=== PATIENT | female | born 1960 | race Caucasian/White ===

== ENCOUNTER 2020-02-04 12:46 | Outpatient (CLI) | payer BC, OTHER, SELFPAY ==
--- NOTE | ~2020-02-04 | DEXA_ITS ---
Bone Density Report Name: Marian Jamil Age: 59 Sex: Female Ethnicity: White Date of : 1960 Indication: osteopenia;postmenopausal Referring Provider: ESTEFANÍA WINTERS Study: Bone densitometry was performed. Exam Date: February 04, 2020 Accession number: [id number] Bone Density: Region BMD T-score Z-score Classification AP Spine (L1-L4) 0.911 -1.2 0.2 Osteopenia Femoral Neck (Left) 0.600 -2.2 -1.0 Osteopenia Total Hip (Left) 0.824 -1.0 0.0 Normal Total Hip Bilateral Avg 0.822 -1.0 -0.1 Osteopenia Femoral Neck (Right) 0.630 -2.0 -0.7 Osteopenia Total Hip (Right) 0.820 -1.0 -0.1 Normal World Health Organization criteria for BMD impression classify patients as: Normal (T-score at or above -1.0), Osteopenia (T-score between -1.0 and -2.5), or Osteoporosis (T-score at or below -2.5). 10-year Fracture Risk(1): Major Osteoporotic Fracture 9.8% Hip Fracture 1.5% Reported Risk Factors: [place] (), Neck BMD=0.600, BMI=22.7 (1) FRAX(R) Version 3.08. Fracture probability calculated for an untreated patient. Fracture probability may be lower if the patient has received treatment. Previous Exams: Region Exam Age BMD T-score BMD Change BMD Change Date g/cm2 vs Baseline vs Previous AP Spine(L1-L4) 02/04/2020 59 0.911 -1.2 -0.024(-2.6%)# 0.023(2.6%)* 09/18/2017 57 0.888 -1.4 -0.047(-5.1%)# 0.021(2.5%) 09/03/2014 54 0.867 -1.6 -0.069(-7.4%)# 0.018(2.1%)# 06/22/2012 52 0.849 -1.8 -0.087(-9.3%)# -0.087(-9.3%)# 03/25/2010 49 0.936 -1.0 Total Hip(Left) 02/04/2020 59 0.824 -1.0 0.007(0.9%)# -0.003(-0.3%) 09/18/2017 57 0.826 -0.9 0.010(1.2%)# -0.046(-5.2%)* 09/03/2014 54 0.872 -0.6 0.055(6.8%)# -0.016(-1.8%)# 06/22/2012 52 0.888 -0.4 0.071(8.7%)# 0.071(8.7%)# 03/25/2010 49 0.817 -1.0 Total Hip(Right) 02/04/2020 59 0.820 -1.0 -0.009(-1.1%)# -0.013(-1.6%) 09/18/2017 57 0.834 -0.9 0.004(0.5%)# 0.033(4.1%)* 09/03/2014 54 0.801 -1.2 -0.029(-3.5%)# -0.024(-2.9%)# 06/22/2012 52 0.824 -1.0 -0.005(-0.7%)# -0.005(-0.7%)# 03/25/2010 49 0.830 -0.9 *Denotes significance at 95% confidence level, LSC for AP Spine = 0.022 g/cm2, LSC for Total Hip = 0.027 g/cm2 Clinical Information Provided by Patient: Has used the following medications: Vitamin D, Calcium Patient maximum height was 62 Menopause Age: 48 No regular weight bearing exercise Drinks caffeinated beverages Onset of menses at age 13 Number of
== END 2020-02-04 12:47 | disposition home or self-care (01) ==
LOC: ANHIMG 12:48
PROVIDERS: PCP Family Medicine; Visit Provider Obstetrics & Gynecology
DX: Z78.0 Asymptomatic menopausal state (principal); M85.88 Other specified disorders of bone density and structure, other site; M85.852 Other specified disorders of bone density and structure, left thigh; M85.851 Other specified disorders of bone density and structure, right thigh
CPT/HCPCS: 77080

== ENCOUNTER 2020-11-06 02:32 | Day surgery (SDC) | payer BC, SELFPAY ==
[2020-10-26 13:57] VITALS: BMI 21.8
[2020-11-06 08:44] VITALS: BP 126/77; PULSE 76; RESP 16; TEMP 36.2; O2SAT 99; BMI 20.8
--- NOTE | 2020-11-06 08:59 | WPDANESEPPF ---
Anes - Initial Pre Proc Eval Procedure: Operation Date: 11/06/20 09:30 Proposed Procedures p Screening Colonoscopy - Keshav Cox MD Date/Time: 11/06/20 08:59 Surgeon: Keshav Cox MD Pre Op Diagnosis: Neoplasm Screening, Hx of Colon Polps Patient Data Age: 60 Gender: F Height: 1.6 m Weight: 53.3 kg Last Vital Signs Temp 97.1 F L 11/06/20 08:44 Pulse 76 11/06/20 08:44 Resp 16 11/06/20 08:44 BP 126/77 11/06/20 08:44 Pulse Ox 99 11/06/20 08:44 Allergies Allergy/AdvReac Type Severity Reaction Status Date / Time oxycodone [From Percocet] Allergy Mild Nausea Verified 11/06/20 08:50 Home Medications Medication Instructions Recorded Confirmed Type calcium citrate 315 mg 2 tablet PO DAILY tablet 12/18/18 11/02/20 History calcium-vitamin D3 6.25 mcg (250 unit) tablet cholecalciferol (vitamin D3) 25 1,000 unit PO DAILY #90 cap 08/26/19 11/02/20 Rx mcg (1,000 unit) capsule melatonin 3 mg tablet See Rx Instructions .ROUTE 07/21/20 11/02/20 Rx .COMPLEX #30 tablet thyroid (pork) 120 mg tablet See Rx Instructions .ROUTE 09/22/20 11/02/20 Rx .COMPLEX #30 tablet estradiol 10/26/20 11/02/20 History testosterone 10/26/20 11/02/20 History biotin 5 mg capsule 5 mg PO DAILY 11/02/20 11/06/20 History progesterone micronized 100 mg 150 mg PO QAM cap 11/02/20 11/06/20 History capsule Patient hx anesthesia problems: none Family hx anesthesia problems: none Results Review: All pre-operative results and documents have been reviewed as part of the pre-operative evaluation. [facility] Past Medical History Medical History Bilateral bunions Hepatitis C antibody test negative (10/27/16) Hypothyroidism, unspecified Mixed hyperlipidemia Surgical History Surgical History History of bladder surgery bladder sling S/P foot surgery, left S/P foot surgery, right Family History Family History Father Hypertension Family history of elevated blood lipids Acute myocardial infarction Malignant neoplasm of prostate Family history of coronary artery disease Patient's father is , Onset Age: 80 Mother Hypertension Family history of malignant neoplasm of breast in first degree relative Family history of coronary artery disease Grandparent Carcinoma of colon Social History Social History Smoking status: Never smoker Alcohol intake: current Substance use: never Living arrangements: alone Anes - Eval Final PreProcedure Day of Procedure 11/06/20 08:59 Patient weight: normal Heart: regular rate and rhythm Lungs: clear to auscultation Airway: Mallampati scale class II Neurological: alert and oriented Last oral intake: >/= 8 hours ASA classification: II Emergent: no Anesthetic plan: proceed Anesthesia type and monitoring: general GIVS and standard monitoring Results Review: All pre-operative results and documents have been reviewed as part of the pre-operative evaluation. Informed Consent: The patient's anesthetic plan and its attendant risks and benefits were discussed with the patient/family/POA. Questions were solicited and answers provided to the satisfaction of the patient/family/POA.
[2020-11-06] MEDS: LACTATED RINGERS 1,000 ML 150 ML IV CONT (09:00)
--- NOTE | 2020-11-06 09:07 | WPDGICN ---
Assessment and Plan Assessment and plan (1) History of colon polyps: Code(s): Z86.010 - Personal history of colonic polyps Status: Acute Assessment and Plan: Patient has a prior history of colon polyps for this reason surveillance colonoscopy is a been advised . this report follows separately. further recommendations will be given after endoscopy. GI Consult Note Consult date/time: 11/06/20 09:07 HPI: Marian Jamil is a 60 year old female Presents for screening colonoscopy. Patient's current weight appetite bowel movements are normal. She denies abdominal pain. She has had no bleeding. Patient does have a prior history of colon polyps 2010. She had a previous colonoscopy 2015 that was unremarkable. She presents today for follow-up surveillance colonoscopy. Review of Systems Review of Systems: All systems reviewed & are unremarkable except as noted in HPI and below PMFSH Past Medical History Medical History Bilateral bunions Hepatitis C antibody test negative (10/27/16) Hypothyroidism, unspecified Mixed hyperlipidemia Surgical History Surgical History History of bladder surgery bladder sling S/P foot surgery, left S/P foot surgery, right Family History Family History Father Hypertension Family history of elevated blood lipids Acute myocardial infarction Malignant neoplasm of prostate Family history of coronary artery disease Patient's father is , Onset Age: 80 Mother Hypertension Family history of malignant neoplasm of breast in first degree relative Family history of coronary artery disease Grandparent Carcinoma of colon Social History Social History Smoking status: Never smoker Alcohol intake: current Substance use: never Living arrangements: alone Meds Home Medications and Allergies Home Medications Medication Instructions Recorded Confirmed Type calcium citrate 315 mg 2 tablet PO DAILY tablet 12/18/18 11/02/20 History calcium-vitamin D3 6.25 mcg (250 unit) tablet cholecalciferol (vitamin D3) 25 1,000 unit PO DAILY #90 cap 08/26/19 11/02/20 Rx mcg (1,000 unit) capsule melatonin 3 mg tablet See Rx Instructions .ROUTE 07/21/20 11/02/20 Rx .COMPLEX #30 tablet thyroid (pork) 120 mg tablet See Rx Instructions .ROUTE 09/22/20 11/02/20 Rx .COMPLEX #30 tablet estradiol 10/26/20 11/02/20 History testosterone 10/26/20 11/02/20 History biotin 5 mg capsule 5 mg PO DAILY 11/02/20 11/06/20 History progesterone micronized 100 mg 150 mg PO QAM cap 11/02/20 11/06/20 History capsule Allergies Allergy/AdvReac Type Severity Reaction Status Date / Time oxycodone [From Percocet] Allergy Mild Nausea Verified 11/06/20 08:50 Vital Signs Vital Signs - 24 hr 11/06/20 08:44 Temperature 97.1 F L Pulse Rate 76 Respiratory Rate 16 Blood Pressure 126/77 Pulse Oximetry 99 Exam Narrative: physical exam reveals patient to be alert. Vital signs stable. HEENT exam is unremarkable. Patient is anicteric. Lungs are clear to auscultation and percussion. Heart is without murmur or extra sounds. Abdominal exam bowel sounds are present soft nontender with no organomegaly. Digital external rectal exam is normal.
[2020-11-06 09:55] VITALS: BP 108/59; PULSE 75; RESP 20; O2SAT 100
[2020-11-06 10:05] VITALS: BP 144/74; PULSE 75; RESP 14; O2SAT 100
[2020-11-06 10:15] VITALS: BP 117/76; PULSE 73; RESP 14; O2SAT 100
== END 2020-11-06 10:23 | disposition home or self-care (01) ==
PROVIDERS: PCP Family Medicine; Visit Provider Internal Medicine Gastroenterology
PROC: 0DJD8ZZ Inspection of Lower Intestinal Tract, Via Natural or Artificial Opening Endoscopic (ICD-10-PCS; CPT 45378; principal; 2020-11-06 09:30)
DX: Z12.11 Encounter for screening for malignant neoplasm of colon (principal); K64.8 Other hemorrhoids; Z86.010 Personal history of colon polyps; E03.9 Hypothyroidism, unspecified; E78.2 Mixed hyperlipidemia
CPT/HCPCS: 45378; J2704; J7120

== ENCOUNTER → 2022-12-19 13:31 | Outpatient (CLI) | payer BC, SELFPAY ==
--- NOTE | ~2022-12-19 | DEXA_ITS ---
Bone Density Report Name: CRISTI SONG Age: 62 Sex: Female Ethnicity: White Date of : 1960 Indication: postmenopausal; screening for osteoporosis; Referring Provider: ESTEFANÍA WINTERS Study: Bone densitometry was performed. Exam Date: December 19, 2022 Accession number: [id number] Bone Density: Region BMD T-score Z-score Classification AP Spine (L1-L4) 0.931 -1.1 0.5 Osteopenia Femoral Neck (Left) 0.645 -1.8 -0.4 Osteopenia Total Hip (Left) 0.827 -0.9 0.1 Normal Femoral Neck (Right) 0.675 -1.6 -0.2 Osteopenia Total Hip (Right) 0.797 -1.2 -0.1 Osteopenia Total Hip Mean 0.812 -1.1 0.0 Osteopenia World Health Organization criteria for BMD impression classify patients as: Normal (T-score at or above -1.0), Osteopenia (T-score between -1.0 and -2.5), or Osteoporosis (T-score at or below -2.5). 10-year Fracture Risk(1): Major Osteoporotic Fracture 9.1% Hip Fracture 1.1% Reported Risk Factors: [place] (), Neck BMD=0.645, BMI=22.6 (1) FRAX(R) Version 3.08. Fracture probability calculated for an untreated patient. Fracture probability may be lower if the patient has received treatment. Clinical Information Provided by Patient: Has used the following medications: Vitamin D Patient maximum height was 62 Menopause Age: 42 Drinks caffeinated beverages Onset of menses at age 12 Number of children 1 Impression: The patient has low bone mass, based on the Left Femoral Neck T-score. The patient has an estimated ten-year risk of hip fracture of 1.1% and an estimated ten-year risk of major fracture of 9.1%, based on the WHO FRAX algorithm. Discussion: BONE DENSITY IS LOW AT ONE OR MORE SKELETAL SITES. This patient's lowest T-score is low at one or more skeletal sites. It meets the World Health Organization's (WHO) criteria for ?low bone mass? (T-score between -1.0 and -2.5). The patient's 10-year risk of fracture as calculated by FRAX is less than the threshold where pharmacological therapy is recommended by the National Osteoporosis Foundation (NOF). However, all treatment decisions require clinical judgment and consideration of individual patient factors, including patient preferences, comorbidities, previous drug use, risk factors not captured in the FRAX model (e.g., frailty, falls, vitamin D deficiency, increased bone turnover, interval significant decline in bone density) and possible under or overestimation of fracture risk by FRAX. The patient should follow a healthful lifestyle (good nutrition with adequate calcium and vitamin D, and appropriate weight-bearing exercise). Follow-Up: Consider repeating this study in 2 to 3 years to reassess this patient's status, or sooner if there is some new clinical indication. Reported by: [facility] on 12/19/2022 2:00:00 PM.
== END ==
PROVIDERS: PCP Obstetrics & Gynecology Gynecology; Visit Provider Obstetrics & Gynecology
DX: M85.88 Other specified disorders of bone density and structure, other site (principal); M85.852 Other specified disorders of bone density and structure, left thigh; M85.851 Other specified disorders of bone density and structure, right thigh
CPT/HCPCS: 77080

== ENCOUNTER 2024-04-11 11:33 | Outpatient (CLI) | payer OTHER, SELFPAY ==
[2024-04-11 12:58] LABS: Strep Group A RT-PCR NOT DETECTED (Negative)
[2024-04-11 13:10] LABS: Influenza A QL RT-PCR Positive (Negative); Influenza B QL RT-PCR Negative (Negative); RSV RNA, RT-PCR Negative (Negative); SARS-CoV-2 RNA PCR Negative (Negative)
--- OUTSIDE RECORDS SUMMARY | 2024-04-11 13:20 | XMS_ITS | Encounter Summary ---
Author Organization [facility] Address [address] [place] [address] Phone Care Team Providers Care Supervisor Riveting Name Role Phone Blane Izquierdo MD Unavailable [phone] Ciera Ayala DO Primary Care Provider [phone] Coretta Fisher MD Unavailable [phone] Tania Degroot MD Unavailable [phone] Kim Baumann NP Primary Care Provider [phone] Encounter Details Date Type Department Care Team (Latest Contact Info) Description 06/13/2022 Orders Only [facility] Scanning, Provider Social History Tobacco Use Types Packs/Day Years Used Date Smoking Tobacco: Never AUDIT-C Answer Date Recorded Q1: How often do you have a drink containing alc ohol? Monthly or less 11/03/2021 Q2: How many drinks containi ng alcohol do you have on a typical day when you are drinking? 1 or 2 11/03/2021 Q3: How often do you have si x or more drinks on one occasion? 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 Gender Identity Not on file Sexual Orientation Not on file documented as of this encounter Plan of Treatment Not on file documented as of this encounter Procedures Procedure Name Priority Date/Time Associated Diagnosis Comments SCAN - LABS 06/13/2022 documented in this encounter Results * SCAN - LABS (06/13/2022) us Provider Scanning Final Result documented in this encounter Visit Diagnoses Not on filedocumented in this encounter Care Teams Supervisor Riveting Relationship Specialty Start Date End Date Ciera Ayala DO [address] [place] [address] PCP - General Family Medicine 08/08/19 11/06/22 Kim Baumann, FRANKI [address] [facility] [address] [place] [address] PCP - General Internal Medicine 11/07/22 Blane Izquierdo MD [address] [facility] [address] [place] [address] Referring Physician Obstetrics and Gynecology 07/03/18 PhillipCoretta shannon MD [address] [place] [address] Surgeon Breast Surgery 11/03/21 Tania Degroot MD [address] [facility] [address] [place] [address] Referring Physician Obstetrics and Gynecology 11/03/21 documented as of this encounter
--- OUTSIDE RECORDS SUMMARY | 2024-04-11 13:20 | XMS_ITS | Continuity of Care Document ---
Author Organization [facility] Address [address] [place] [address] Phone Care Team Providers Care Fish Cleaner Name Role Phone Lang OD, Keshav Unavailable Unavailable Advance Directives Directive Yes / No Effective Date File Name No Information Encounters Encounter Description Practice Location Reason(s) For Visit Diagnoses Date Provider Providers Copied on Encounter [facility], [address], [place], [place], [id number], [place] tel:[phone] [facility] No Information [phone] Lang OD Keshav. [address], [place], [address], [place]. tel:[phone] Family History Family Member Type Diagnosis Age At Onset No Information Payers Payer name Insurance type Covered republican ID Authoriza tion(s) No Information Social History Type Description Quantity Date Captured Comments Sex Female Smoking Status No Information Chief Complaint And Reason For Visit No Information Reason For Referral Reason For Referral No Information History Of Present Illness Encounter Date Complaint History Of Prese nt Illness No Information Functional Status Date Functional Assessmen t No Information Instructions Date Instruction Additional Infor mation No Information Assessments Type Assessment Date No Information Patient Care Teams Name Effective Dates (start - stop) Status Members No Information
--- OUTSIDE RECORDS SUMMARY | 2024-04-11 13:20 | XMS_ITS | Clinical Summary ---
Author Organization [facility] Address [address] [place] [address] Care Team Providers Care Juice Scaleman Name Role Phone Blane Izquierdo MD Unavailable [phone] Coretta Fisher MD Unavailable Taina Degroot MD Unavailable [phone] Kim Baumann SIGN LANGUAGE TRANSLATOR Primary Care Provider [phone] Allergies Active Allergy Reactions Criticality Noted Date Comments Amoxicillin Hives High 01/26/2022 Medications SIGN LANGUAGE TRANSLATOR Thyroid 120 mg tablet Active cholecalciferol , vitamin D3, (VITAMIN D3 ORAL) Take 5,000 Units/day by mouth Active TESTOSTERONE, BULK, MISC 20 mg Testosterone 20mg cream Active ESTRADIOL-PROGE STERONE ORAL Take by mouth Estradiol 1.7mg and Progesterone 150mg Active vitamin D3-vitamin K2 25 mcg (1,000 unit)-90 mcg tablet,disinteg rating Take by mouth Active Active Problems Problem Noted Date Diagnosed Date Inconclusive mammogram due to dense breasts 03/2023 Family history of breast cancer 09/08/2021 Dense breast tissue on mammogram 09/08/2021 Encounter for screening mammogram for breast can cer 09/08/2021 Breast cancer screening, high risk patient 01/16 Resolved Problems Problem Noted Date Diagnosed Date Resolved Date Abnormal findings on diagnos tic imaging of breast 07/16/2018 08/12/2020 Immunizations Immunization Administration Dates Next Due Flucelvax Influenza Quad 11/22/2018 Influenza, Quadrivalent, Albertina l Culture-based MDCK, Preservative Free, Antibiotic Free, Intramuscular 11/20/2018 Influenza, Quadrivalent, Spl it, Preservative Free, Intramuscular 11/12/2019,10/31/2017 Surgical History Surgery Date Site/Laterality Comments BUNIONECTOMY 02/07/2008 - 02/05/2009 BLADDER SURGERY Medical History Medical History Date Comments Thyroid disease Family History Medical History Relation Name Comments Blood Clot Maternal Grandfather post-op blood clot Breast cancer Mother bilateral Relation Name Status Comments Father Maternal Grandfather Maternal Grandmother Mother Paternal Grandfather Paternal Grandmother Social History Tobacco Use Types Packs/Day Years Used Date Smoking Tobacco: Never Tobacco Cessation:Counseling Given: Not Answered AUDIT-C Answer Date Recorded Frequency of Alcohol Consumption Not on file 11/30/2022 Q2: How many drinks containi ng alcohol do you have on a typical day when you are drinking? 1 or 2 11/30/2022 Q3: How often do you have si x or more drinks on one occasion? 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 Gender Identity Not on file Sexual Orientation Not on file Obstetrics History Para Term AB IAB SAB Ectopic Multiple Livin g Live Births 1 1 1 Date Outcome GA Total Labor Labor/2nd/3rd Weight Sex Type Anes PTL Rose Marie A1 A5 Name Clin Term Last Filed Vital Signs Vital Sign Reading Time Taken Comments Blood Pressure 132/79 11/08/2023 8:23 AM CDT Pulse 61 11/08/2023 8:23 AM CDT Temperature 36.6 C (97.8 F) 11/08/2023 8:23 AM CDT Respiratory Rate 16 11/08/2023 8:23 AM CDT Oxygen Saturation 99% 11/08/2023 8:23 AM CDT Inhaled Oxygen Concentration - - Weight 55.1 kg (121 lb 6.4 oz) 11/08/2023 8:23 A M CDT Height 157.7 cm (5' 2.1 ) 04/19/2023 1:30 PM CDT Body Mass Index 22.13 04/19/2023 1:30 PM CDT Plan of Treatment Health Maintenance Due Date Last Done Comments Cervical Cancer Screening 1960 Colon Cancer Screening-Colonoscopy 1960 Depression Screening 1960 Hepatitis C Screening 1960 DTaP/Tdap/Td Vaccine (1 - Tdap) 1971 Hepatitis B Screening 1978 Regular Well Visit/Exam 18-64 1978 Zoster Vaccine (1 of 2) 2010 Influenza Vaccine (#1) 2023 , 11/22/2018, 11/20/2018, Additional history exists Breast Cancer Screening-Mammogram 11/07/2024 11/08/2023, 11/03/2021, 08/12/2020, Additional history exists Pneumococcal vaccine <65 Aged Out No longer eligible based on patient's age to complete this topic Procedures Procedure Name Priority Date/Time Associated Diagnosis Comments SCREENING MAMMOGRAM BILATERAL W FRANCISCO Schedule Routine, Read Routine (OP Routine) 11/08/2023 8:01 AM CDT Breast cancer screening by mammogram from Last 3 Months or Most Recently Relevant to Health Maintenance Results * Screening Mammogram Bilateral W Francisco (11/08/2023 8:01 AM CDT) Anatomical Region Laterality Modality Breast Bilateral Mammography Impressions 11/08/2023 8:15 AM CDT BI-RADS ATLAS category (overall): 1 - Negative There is no mammographic evidence of malignancy. A 1 year screening mammogram is recommended. The patient has been or will be contacted. We recommend annual screening mammography for women at average risk of breast cancer beginning at age 40, based on guidelines of the [employer] (ACR Practice Parameter for the Performance of Screening and Diagnostic Mammography) and [employer]. For women with and elevated risk of breast cancer, please refer to the ACR Practice Parameter for specific screening recommendations. The patient will be entered into a reminder system with a target due date of 1 year for her next screening exam. Narrative 11/08/2023 8:15 AM CDT Screening Mammogram Bilateral W Francisco: 11/08/23 The study was acquired using full field digital technology and interpreted from soft copy. 2D digital mammographic views, as well as 3D digital tomosynthesis were performed in the CC and MLO projections. CLINICAL: Breast cancer screening by mammogram. No relevant medical history has been documented for this patient. History of breast cancer in Mother. COMPARISONS: 11/03/2022 Contrast Enhanced Digital Mammography Bilateral 11/03/2021 Screening Mammogram Bilateral W Francisco 08/12/2020 Screening Mammogram Bilateral W Francisco 08/08/2019 Diagnostic Mammogram Bilateral W Francisco BREAST TISSUE: The breasts are extremely dense, which lowers the sensitivity of mammography. FINDINGS: No suspicious masses, suspicious calcifications, or other suspicious findings are seen within either breast. There has been no suspicious change. Coretta Fisher MD IMG MAMMO PROCEDURES Final Result from Last 3 Months or Most Recently Relevant to Health Maintenance Insurance [facility] Care Teams Juice Scaleman Relationship Specialty Start Date End Date Kim Baumann NP [address] [facility] [address] [place] [address] PCP - General Internal Medicine 11/07/22 Blane Izquierdo MD [address] [facility] [address] [place] [address] Referring Physician Obstetrics and Gynecology 07/03/18 Coretta Fisher MD [address] [place] [address] Surgeon Breast Surgery 11/03/21 Tania Degroot MD [address] [facility] [address] [place] [address] Referring Physician Obstetrics and Gynecology 11/03/21
--- OUTSIDE RECORDS SUMMARY | 2024-04-11 13:20 | XMS_ITS | Referral Summary ---
Author Organization [facility] Address [address] [place] [address] Care Team Providers Care Body Engineer Name Role Phone Blane Izquierdo MD Unavailable [phone] Coretta Fisher MD Unavailable [phone] Tania Degroot MD Unavailable [phone] Kim Baumann ROLLER COASTER ENGINEER Primary Care Provider [phone] Allergies Active Allergy Reactions Criticality Noted Date Comments Amoxicillin Hives High 01/26/2022 Medications ROLLER COASTER ENGINEER Thyroid 120 mg tablet Active cholecalciferol , [...] Quadrivalent, Spl it, Preservative Free, Intramuscular 11/12/2019,10/31/2017 Social History Tobacco Use Types Packs/Day Years [...] on file 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 For women [...] Most Recently Relevant to Health Maintenance Insurance [facility] [employer] [place] [facility] Transportation [employer] [place] Care Teams Body Engineer Relationship Specialty Start Date End Date Kim Baumann NP [address] [facility] [address] [place] [address] PCP - General Internal Medicine 11/07/22 Blane Izquierdo MD [address] [facility] [address] [place] [address] Referring Physician Obstetrics and Gynecology 07/03/18 Coretta Fisher MD [address] [place] [address] Surgeon Breast Surgery 11/03/21 Tania Degroot MD [address] [facility] [address] [place] [address] Referring Physician Obstetrics and Gynecology 11/03/21
--- OUTSIDE RECORDS SUMMARY | 2024-04-11 13:20 | XMS_ITS | Encounter Summary ---
Author Organization [facility] Address 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
--- OUTSIDE RECORDS SUMMARY | 2024-04-11 13:20 | XMS_ITS | Patient Health Summary ---
Author Organization [facility] [employer] Address [address] [place] [address] Care Team Providers Care Knock Up Assembler Name Role Phone Brendon Johnson MD Primary Care Provider [phone] Note from [facility],non-owned Affiliates and Associated Physician Practices is amultiple site organization consisting of ambulatory clinics and hospital sitesin [place], [place], [place]. This disclosure is being madepursuant to the Care Everywhere program and may not contain all information available regarding this patient. Last updated 17.[facility] [employer] Allergies No known active allergies Medications * Be aware that medications may not be up to date on this document. Alwaysverify current medications with the patient. * TRANSPORT TANK TECHNICIAN Thyroid 120 MG tablet(Started 05/23/2022) * progesterone 150 mg 150 mg capsule Take 1 (one) capsule by mouth at bedtime * ESTRADIOL PO * testosterone 0.25 %, 2.5 MG/GM, CREA compound cream Apply to affected area once daily * tacrolimus (Protopic) 0.1 % ointment(Started 06/03/2022) Apply to affected areas on eyelids two times daily. 30 days supply. 2 refills by 06/03/2023 Active Problems No known active problems Social History Tobacco Use Types Packs/Day Years Used Date Smoking Tobacco: Never Smokeless Tobacco: Never Tobacco Cessation:Counseling Given: Not Answered Sex and Gender Information Value Date Recorded Sex Assigned at Not on file Gender Identity Not on file Sexual Orientation Not on file Procedures * DERMATOPATHOLOGY(Performed 09/15/2011) Results * PATHOLOGY TISSUE FOR DERMATOLOGY (09/15/2011 12:00 AM CDT) Result CASE: [id number] PATIENT: MARIAN JAMIL PATHOLOGIC DIAGNOSIS: A. Left lat neck: INTRADERMAL MELANOCYTIC NEVUS B. Left post neck: INTRADERMAL MELANOCYTIC NEVUS C. Mid upper back: INTRADERMAL MELANOCYTIC NEVUS D. Right chest lower bra line: INTRADERMAL MELANOCYTIC NEVUS CLINICAL DATA: A-D: Nevus. GROSS DESCRIPTION: A; Received is one formalin filled container labeled with the patient's name and designated left lateral neck. The specimen consists of a shave biopsy measuring 4x3x1 mm. Jar 0. B: Received is one formalin filled container labeled with the patient's name and designated left post neck. The specimen consists of a shave biopsy measuring 3x2x1 mm. Jar 0. C: Received is one formalin filled container labeled with the patient's name and designated mid upper back. The specimen consists of a shave biopsy measuring 6x5x2 mm. Jar 0. D: Received is one formalin filled container labeled with the patient's name and designated right chest below bra line. The specimen consists of a shave biopsy measuring 4x3x2 mm. Jar 0. MICROSCOPIC DESCRIPTION: SPECIMEN A: There are nests of melanocytes within the dermis that mature with depth. SPECIMEN B: There are nests of melanocytes within the dermis that mature with depth. SPECIMEN C: There are nests of melanocytes within the dermis that mature with depth. SPECIMEN D: There are nests of melanocytes within the dermis that mature with depth. Final Diagnosis performed by Sneha Puente M.D. Electronically signed 09/19/2011 1:23:59PM [facility] Comment: Performed at: Dermatopathology Laboratory [facility] - Department of Dermatology [address] [place] [address], [address] [place] [address] Phone number: [phone] Toll Free: [phone] FAX: [phone] 09/15/2011 09/16/2011 Historical Provider LAB - PATHOLOGY/C YTOLOGY ORDERABLES [facility] [address] [place] [address]. 5[address] Lab [address] [phone] Care Teams Knock Up Assembler Relationship Specialty Start Date End Date Brendon Johnson MD [address] [place] [address] PCP - General 01/26/22
--- OUTSIDE RECORDS SUMMARY | 2024-04-11 13:20 | XMS_ITS | Clinical Summary ---
Author Organization [facility] [employer] Address [address] [place] [address] Care Team Providers Care Home Health Physical Therapist Name Role Phone Brendon Johnson MD Primary Care Provider [phone] Source Comments [facility] [employer],non-owned Affiliates and Associated Physician Practices is amultiple site organization consisting of ambulatory clinics and hospital sitesin [place], [place], [place] and [place]. This disclosure is being madepursuant to the Care Everywhere program and may not contain all information available regarding this patient. Last updated 17.[facility] [employer] Allergies No known active allergies Medications * Be aware that medications may not be up to date on this document. Alwaysverify current medications with the patient. Medication Sig Dispensed Refills Start Date End Date Status CONSTRUCTION AREA MANAGER Thyroid 120 MG tablet 05/23/2022 Active progesterone 150 mg 150 mg capsule Take 1 (one) capsule by mouth at bedtime Active ESTRADIOL PO Active testosterone 0.25 %, 2.5 MG/GM, CREA compound cream Apply to affected area once daily Active tacrolimus (Protopic) 0.1 % ointmentIndications:A llergic contact dermatitis due to other agents Apply to affected areas on eyelids two times daily. 30 days supply. 30 g 2 06/03/2022 Active Active Problems No known active problems Social History Tobacco Use Types Packs/Day Years Used Date Smoking Tobacco: Never Smokeless Tobacco: Never Tobacco Cessation:Counseling Given: Not Answered Sex and Gender Information Value Date Recorded Sex Assigned at Not on file Gender Identity Not on file Sexual Orientation Not on file Plan of Treatment Health Maintenance Due Date Last Done Comments COLOGGEETHA (AGES 45-75) - COL ON CA SCREENING 1960 COLON MONITORING 1960 COLONOSCOPY - COLON CA SCREENING 1960 CT COLONOGRAPHY - COLON CA SCREENING 1960 Colorectal Cancer Screening 1960 FIT - COLON CA SCREENING 1960 FLEX SIG - COLON CA SCREENING 1960 LIPID TESTING 1960 MAMMOGRAM 1960 PAP SMEAR 1960 HIV SCREENING 1975 HEPATITIS C SCREENING 04/01/1978 DTAP/TDAP/TD VACCINES (1 - Tdap) 1979 PNEUMOCOCCAL VACCINE 50+ (1 of 1 - PCV) 2010 ZOSTER VACCINE (1 of 2) 2010 COVID-19 VACCINE (1 - 2023-2 5 season) 2023 INFLUENZA VACCINE (#1) 2023 DEPRESSION SCREENING 02/07/2024 Respiratory Syncytial Virus (RSV) Vaccine Pt: or over 60 yrs (1 - 1-dose 75+ series) 2035 HEPATITIS B VACCINE Aged Out No longe r eligible based on patient's age to complete this topic HIB VACCINE Aged Out No longer eligi ble based on patient's age to complete this topic HPV VACCINE Aged Out No longer eligi ble based on patient's age to complete this topic MENINGOCOCCAL (Group B) VACCINE Aged Out No longer eligible based on patient's age to complete this topic MENINGOCOCCAL VACCINE Aged Out No meggan katie eligible based on patient's age to complete this topic PNEUMOCOCCAL VACCINE Aged Out No long er eligible based on patient's age to complete this topic Care Teams Home Health Physical Therapist Relationship Specialty Start Date End Date Brendon Johnson MD [address] [place] [address] PCP - General 01/26/22
--- OUTSIDE RECORDS SUMMARY | 2024-04-11 13:20 | XMS_ITS | Clinical Summary ---
Author Organization [facility] Address [address] [facility] [address] [address] Care Team Providers Care Womens Volleyball Coach Name Role Phone Unavailable Primary Care Provider Unavailabl e Allergies Active Allergy Reactions Criticality Noted Date Comments Amoxicillin Hives High 01/26/2022 Medications melatonin 3 mg Tablet TAKE 1 TABLET BY MOUTH EVERYDAY AT BEDTIME 30 Tablet 2 3 Active benzonatate (TESSALON) 200 mg capsule Take 1 Capsule (200 mg) by mouth 3 times daily as needed for cough. 60 Capsule 1 04/20/2022 8:07 AM CDT 3 Active tacrolimus (PROTOPIC) 0.1 % Ointment Apply to affected areas on eyelids two times daily. 30 days supply. 30 Gram 2 3 Active thyroid, pork, (ARMOUR THYROID) 120 mg tablet Take 1 Tablet (120 mg) by mouth daily. 90 Tablet 09/19/2022 1:14 PM CDT 3 Active azithromycin (ZITHROMAX) 250 mg tablet Take 2 tablets by mouth as 1 dose today, then take 1 tablet by mouth once daily on days 2 thru 5. 6 Tablet 12/23/2022 5:26 PM ICE SKATER 3 Active thyroid, pork, (ARMOUR THYROID) 120 mg tablet Take 1 Tablet (120 mg) by mouth daily. Please have labs done for further refills. 90 Tablet 1 03/27/2023 11:54 AM ICE SKATER 3 Active estradioL (ESTRACE) 0.01% (0.1 mg/g) vaginal cream Insert 1 gram vaginally every night at bedtime for 2 weeks then use twice weekly thereafter. 42.5 Gram 3 07/13/2023 5:32 PM CDT 4 Active tretinoin (RETIN-A) 0.05 % Cream APPLY A PEA SIZED AMOUNT TO AREA AT BEDTIME. 20 Gram 4 10/02/2023 5:16 PM CDT 4 Active thyroid, pork, (ARMOUR THYROID) 15 mg tablet Take 1 Tablet (15 mg) by mouth daily. 90 Tablet 1 01/01/2024 1:24 PM ICE SKATER 4 Active thyroid, pork, (ARMOUR THYROID) 90 mg tablet Take 1 Tablet (90 mg) by mouth daily. 90 Tablet 1 01/01/2024 1:24 PM ICE SKATER 4 Active albuterol sulfate HFA 90 mcg/actuation aerosol inhaler Inhale 2 puffs by mouth every 4 to 6 hours as needed for shortness of breath or wheezing. 8.5 Gram 03/02/2024 1:07 PM ICE SKATER 5 Active doxycycline monohydrate 100 mg Tablet Take 1 Tablet (100 mg) by mouth 2 times daily for 10 days. 20 Tablet 03/02/2024 1:07 PM ICE SKATER 5 03/12/19 25 Encounters Date Type Department Care Team Description 04/10/2024 External Device Data [facility] ABSTRACTION Provider, Abstract 03/27/2024 External Device Data [facility] ABSTRACTION Provider, Abstract 03/27/2024 External Device Data [facility] ABSTRACTION Provider, Abstract 03/26/2024 External Device Data [facility] ABSTRACTION Provider, Abstract 02/29/2024 External Device Data [facility] AB[facility]CTION Provider, Abstract 02/20/2024 External Device Data [facility] ABSTRACTION Provider, Abstract from Last 3 Months Social History Tobacco Use Types Packs/Day Years Used Date Smoking Tobacco: Never Assessed Comments Unknown Sex and Gender Information Value Date Recorded Sex Assigned at Not on file 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 Gender Identity Not on file Sexual Orientation Not on file Plan of Treatment Health Maintenance Due Date Last Done Comments DTAP/TDAP/TD VACCINES (1 - Tdap) 1979 CERVICAL CANCER SCREENING 1990 BREAST CANCER SCREENING 2000 COLORECTAL SCREENING 2005 Colorectal Cancer Screening 2005 FIT-DNA Q 3 years 2005 FIT/FOBT Q 1 year 2005 Flex Sig/CT Colonography Q 5 years 2005 ZOSTER VACCINE (1 of 2) 2010 INFLUENZA VACCINE (#1) 2023 RSV VACCINE (60+ or ) (1 - 1-dose 75+ series) 2035 PNEUMOCOCCAL VACCINE 0-49 YEARS Aged Out No longer eligible based on patient's age to complete this topic Insurance RX [employer] Commercial RX [employer] (INTERNAL) [facility]
--- OUTSIDE RECORDS SUMMARY | 2024-04-11 13:20 | XMS_ITS | Referral Summary ---
Author Organization [facility] [employer] Address [address] [place] [address] Care Team Providers Care Bread Distributor Name Role Phone Brendon Johnson MD Primary Care Provider [phone] Source Comments [facility] [employer],non-owned Affiliates and Associated Physician Practices is amultiple site organization consisting of ambulatory clinics and hospital sitesin [place], [place], [place] and [place]. This disclosure is being madepursuant to the Care Everywhere program and may not contain all information available regarding this patient. Last updated 17.[facility] Allergies No known active allergies Medications * Be aware that medications may not be up to date on this document. Alwaysverify current medications with the patient. Medication Sig Dispensed Refills Start Date End Date Status PRODUCTION SOLDERER Thyroid 120 MG tablet 05/23/2022 Active progesterone [...] Orientation Not on file Plan of Treatment Not on file Care Teams Bread Distributor Relationship Specialty Start Date End Date Brendon Johnson MD [address] [place] [id number] PCP - General 01/26/22
== END 2024-04-11 11:34 | disposition home or self-care (01) ==
PROVIDERS: PCP Nurse Practitioner; Visit Provider Nurse Practitioner
DX: R50.9 Fever, unspecified (principal); J02.9 Acute pharyngitis, unspecified; Z20.822 Contact with and (suspected) exposure to COVID-19
CPT/HCPCS: 87637; 87651